=== PATIENT | male | born 1975 ===

== ENCOUNTER 2024-07-11 15:56 | Outpatient (CLI) | payer OTHER, SELFPAY ==
--- NOTE | 2024-07-11 15:30 | DI.RAD_ITS ---
Exam(s) XR SHOULDER RT COMPLETE 2+V EXAM: XR SHOULDER RT COMPLETE 2+V CLINICAL HISTORY: LEFT SHOULDER PAIN. TECHNIQUE: 2D digital imaging was performed. COMPARISON: No exams were available for comparison FINDINGS: Two views-Gr[place] and axial views No evidence of fracture or dislocation or abnormal soft tissue calcifications. Subacromial space yeny ears unremarkable. There are no degenerative changes evident in the glenohumeral and AC joints. Cor acoid process appears unremarkable. Bone density normal. No osseous lesions. IMPRESSION: No significant radiograph findings on these two views of the right shoulder DATA REPOSITORY: RADIATION DOSE DELIVERED:
== END 2024-07-11 15:57 | disposition home or self-care (01) ==
LOC: DIORS 15:56
PROVIDERS: Visit Provider Student in an Organized Health Care Education/Training Program
DX: M25.512 Pain in left shoulder (principal)
CPT/HCPCS: 73030

== ENCOUNTER 2024-08-03 00:05 | Outpatient (CLI) | payer OTHER, SELFPAY ==
--- NOTE | 2024-08-03 06:30 | DI.MRI_ITS ---
Exam(s) MR UPPER JOINT RT WO EXAM: MR UPPER JOINT RT WO CLINICAL HISTORY: R SHOULDER PAIN,m75.101,rt rotator cuff tear. TECHNIQUE: Multiplanar multisequence MRI was performed. COMPARISON: CR XR SHOULDER RT COMPLETE 2+V from 07/11/2024 FINDINGS: BONES: There is no fracture or contusion pattern. JOINTS: There are mild degenerative changes seen at the acromioclavicular joint. The glenohumeral shanta int is normal. There is a small amount of fluid in the glenoid humeral joint and the subcoracoid burs a. TENDONS: Supraspinatus: There is mild tendinosis of the supraspinatus tendon. Infraspinatus: Unremarkable. Subscapularis: There is thickening in the heterogeneous signal seen within the subscapularis tendon. There is some irregularity of the tendon superiorly suspicious for partial tear. Underlying tendino desiree cannot be excluded. Teres Minor: Unremarkable. Biceps and [place]: Unremarkable. MUSCLES: No muscular fatty atrophy is seen. Please see the above discussion under subscapularis tend on. GLENOID LABRUM: There is some heterogeneity of the anterior superior labrum which may represent a tea r or degeneration. SOFT TISSUES: There is mild edema seen in the soft tissues around the subscapularis muscle and tendon . LIGAMENTS: Unremarkable. OTHER: There is a small amount of fluid seen in the subacromial bursa. IMPRESSION: 1. Thickening and heterogeneity of the subscapularis tendon suspicious for underlying tendinopathy. There is irregularity seen on the superior aspect of the tendon suspicious for partial tear. 2. Degenerative changes seen at the acromioclavicular joint. 3. Mild tendinosis of the supraspinatus tendon without evidence of a tear. 4. Mild edema in the soft tissues of the anterior shoulder particularly around the subscapularis musc le. No focal fluid collection is seen to suggest an abscess. DATA REPOSITORY:
== END 2024-08-03 00:25 ==
PROVIDERS: PCP Internal Medicine; Visit Provider Student in an Organized Health Care Education/Training Program
DX: M19.011 Primary osteoarthritis, right shoulder (principal)
CPT/HCPCS: 73221